=== PATIENT | female | born 1965 | race African-American/Black ===

== ENCOUNTER 2017-09-12 11:33 | Emergency (ER) | payer MEDICAID ==
[~2017-09-12] VITALS: Ht 157.5 cm; Wt 120.0 kg
[2017-09-12 11:44] VITALS: BP 154/98
== END 2017-09-12 17:28 | disposition left against medical advice (07) ==
LOC: ER 13:47
DX: M79.662 Pain in left lower leg (principal); Z53.21 Procedure and treatment not carried out due to patient leaving prior to being seen by health care provider

== ENCOUNTER 2019-03-28 01:42 | Emergency (ER) | payer MEDICAID ==
[~2019-03-28] VITALS: Ht 157.5 cm; Wt 118.0 kg
[2019-03-28 04:33] VITALS: BP 104/57
== END 2019-03-28 05:29 | disposition home or self-care (01) ==
LOC: ER 01:42
DX: H66.93 Otitis media, unspecified, bilateral (principal); B34.9 Viral infection, unspecified; F12.10 Cannabis abuse, uncomplicated; F17.210 Nicotine dependence, cigarettes, uncomplicated
CPT/HCPCS: 99283